=== PATIENT | male | born 1965 | race Two or more races ===

== ENCOUNTER 2021-03-07 11:31 | Emergency (ER) | payer OTHER ==
[2021-03-07 11:45] VITALS: TEMP 98.9; BMI 27.4
[2021-03-07] MEDS ORDERED: ACETAMINOPHEN 1000 MG/100 ML VIAL (NON FORMULARY) IVPB ONE (12:05)
[2021-03-07] MEDS ORDERED: ACETAMINOPHEN INJECTION 100 ML IVPB ONE (12:30)
[2021-03-07 13:09] LABS: ALBUMIN 4.3 g/dl (3.4-5.0); ALK PHOS 73 U/L (45-117); ANION GAP 18 MMOL/L (8-16); BILIRUBIN,TOTAL 0.7 mg/dl (0.2-1); CALCIUM 9.5 mg/dl (8.5-10); CHLORIDE 95 mmol/L (98-107); CO2 23 mmol/L (21-32); CREATININE 0.8 mg/dl (0.55-1.3); GLUCOSE,RANDOM 136 mg/dl (74-106); SGOT/AST 22 U/L (15-37); SGPT/ALT 23 U/L (13-61); SODIUM 136 mmol/L (136-145); TOT PROT 8.1 g/dl (6.4-8.2)
[2021-03-07 13:19] LABS: MCH 26.3 pg (25.7-33.7)
[2021-03-07 13:21] LABS: HEMATOCRIT 40.1 % (35.4-49); MCHC 32.4 g/dl (32.0-35.9); MEAN CELL VOLUME 80.9 fl (80-96); MEAN PLT VOLUME 7.9 fl (7.5-11.1); PLATELET COUNT 516 10^3/uL (134-434); RBC 4.96 M/mm3 (4.00-5.60); RDW 13.4 % (11.9-15.9); WHITE BLOOD COUNT 9.3 K/mm3 (4.0-10.8)
[2021-03-07 14:41] LABS: LIPASE 155 U/L (73-393)
[2021-03-07 15:16] VITALS: BP 128/79; PULSE 82
== END 2021-03-07 16:28 | disposition home or self-care (01) ==
LOC: FER 11:31
PROC: 3E0333Z Introduction of Anti-inflammatory into Peripheral Vein, Percutaneous Approach (ICD-10-PCS; principal; 2021-03-07)
DX: K51.90 Ulcerative colitis, unspecified, without complications (principal)
CPT/HCPCS: 36415; 74177-TC; 80053; 82550; 83690; 84484; 85025; 93005; 99285-25; C9803; J0131; Q9967; U0003; U0005